=== PATIENT | female | born 1960 | race Caucasian/White ===

== ENCOUNTER → 2022-03-02 | Outpatient (CLI) | payer OTHER ==
--- NOTE | 2022-03-02 10:29 | XR ---
EXAMINATION TYPE: XR hand complete RT DATE OF EXAM: 03/02/2022 COMPARISON: NONE HISTORY: Pain TECHNIQUE: Three views are submitted. FINDINGS: The osseous structures are intact. There is narrowing of the DIP joint and third digit with hypertrop hic spurring. IMPRESSION: 1. No definite acute fracture or dislocation if symptoms persist, follow-up study in 7 to 10 days wo uld be suggested
--- NOTE | 2022-03-02 10:32 | XR ---
EXAMINATION TYPE: XR wrist complete RT DATE OF EXAM: 03/02/2022 COMPARISON: NONE HISTORY: 62-year-old female [id number] sudden pain with lifting patient TECHNIQUE: 4 views FINDINGS: Moderate degenerative change first CMC joint with marginal spurring, subchondral sclerosis, joint spa ce narrowing. There is mild negative ulnar variance. Otherwise, radiocarpal and distal radioulnar vee nt as well as the midcarpal compartment appear intact. No acute fracture, subluxation, dislocation se en. 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 No acute osseous abnormality seen.
== END | disposition home or self-care (01) ==
LOC: RADXRMAIN 09:54
PROVIDERS: ATTEND Emergency Medicine
DX: M19.031 Primary osteoarthritis, right wrist (principal)